=== PATIENT | female | born 1980 | race Caucasian/White ===

== ENCOUNTER 2017-10-01 06:49 | Emergency (ER) | payer MEDICARE, OTHER ==
[~2017-10-01] VITALS: Ht 157.5 cm; Wt 50.0 kg
[~2017-10-01 06:49] MED LIST: DIVA-76 PO; HYDR-569 PO
[2017-10-01 06:50] VITALS: BP 103/69
== END 2017-10-01 08:17 | disposition home or self-care (01) ==
LOC: ER 06:50
DX: M79.641 Pain in right hand (principal); J45.909 Unspecified asthma, uncomplicated; F17.200 Nicotine dependence, unspecified, uncomplicated; Z90.710 Acquired absence of both cervix and uterus; Z59.0 Homelessness; Z88.5 Allergy status to narcotic agent; Z88.1 Allergy status to other antibiotic agents; Z79.899 Other long term (current) drug therapy
CPT/HCPCS: 29125; 73130; 99284

== ENCOUNTER 2020-09-29 00:52 | Emergency (ER) | payer MEDICAID, MEDICARE ==
[~2020-09-29] VITALS: Ht 157.5 cm; Wt 52.3 kg
[~2020-09-29 00:52] MED LIST changes: +HYDR-4383 PO; -HYDR-569 PO
[2020-09-29 01:08] VITALS: BP 124/82
== END 2020-09-29 03:06 | disposition left against medical advice (07) ==
LOC: ER 00:52
DX: M25.562 Pain in left knee (principal); Z53.21 Procedure and treatment not carried out due to patient leaving prior to being seen by health care provider
CPT/HCPCS: 73590